=== PATIENT | female | born 1960 | race Caucasian/White ===

== ENCOUNTER → 2017-08-20 | Outpatient (CLI) | payer BC ==
[~2017-08-20] MED LIST: ATEN-65 PO; CALC-896 PO; CHOL100059 PO; FLU45SYR17 IM; FOLI-91 PO; MULT-856 PO
--- NOTE | 2017-08-20 15:35 | RADIOLOGY IMAGING REPORT ---
FACILITY: [facility] [place] PATIENT NAME: SALVADOR ZARAGOZA : [id number] MR: [id number] V: [id number] EXAM DATE: [id number] ORDERING PHYSICIAN: SANTOS RINALDI TECHNOLOGIST: Gina Deal PROCEDURE:BILATERAL DIGITAL SCREENING MAMMOGRAM WITH CAD ASSISTED INTERPRETATION & 3D TOMOSYNTHESIS COMPARISON:08/06/16 & priors back to 04/01/11 INDICATIONS:screening FINDINGS: Breast parenchymal density is predominantly fatty. There are 2 stable benign appearing masses in the upper inner aspect of the right breast. There are no mammographic findings concerning for malignancy. There is no significant interval change. DIAGNOSTIC CATEGORY 2--BENIGN FINDING. RECOMMENDATIONS: ROUTINE MAMMOGRAM AND CLINICAL EVALUATION IN 1 YR. IMPRESSION: BIRADS 2: Benign finding. 1. Dictated by: Abhi Plascencia on 08/20/2017 at 13:41 Transcribed by: DANNY on 08/20/2017 at 15:03 Approved by: Abhi Plascencia on 08/20/2017 at 15:34 [facility]
== END ==
LOC: MAMO 00:46
PROVIDERS: ATTEND Nurse Practitioner Family
DX: Z12.31 Encounter for screening mammogram for malignant neoplasm of breast (principal)
CPT/HCPCS: 77063; 77067

== ENCOUNTER → 2018-10-24 | Outpatient (CLI) | payer BC ==
--- NOTE | 2018-10-27 08:23 | RADIOLOGY IMAGING REPORT ---
FACILITY: [facility] PATIENT NAME: SALVADOR ZARAGOZA : [id number] MR: [id number] V: [id number] EXAM DATE: [id number] ORDERING PHYSICIAN: SANTOS RINALDI TECHNOLOGIST: Kendra Singleton PROCEDURE:BILATERAL DIGITAL SCREENING MAMMOGRAM WITH CAD ASSISTED INTERPRETATION & 3D TOMOSYNTHESIS COMPARISON:Prior mammograms 08/20/17, 08/06/16, 10/24/14, 02/06/13. INDICATIONS:screening FINDINGS: The breasts are almost entirely fatty. The parenchymal pattern has remained stable allowing for difference in mammographic technique & patient positioning. DIAGNOSTIC CATEGORY 1--NEGATIVE. RECOMMENDATIONS: ROUTINE MAMMOGRAM AND CLINICAL EVALUATION. IMPRESSION: BIRADS 1: Negative. No significant abnormality is seen. Dictated by: Evelyn Estrada M.D. on 10/25/2018 at 15:52 Transcribed by: JOSE JUAN on 10/26/2018 at 8:28 Approved by: Evelyn Estrada M.D. on 10/27/2018 at 8:22 [facility]
== END ==
LOC: MAMO 01:02
PROVIDERS: ATTEND Nurse Practitioner Family
DX: Z12.31 Encounter for screening mammogram for malignant neoplasm of breast (principal)
CPT/HCPCS: 77063; 77067